=== PATIENT | female | born 1955 | race Hispanic/Latino ===

== ENCOUNTER 2018-12-09 06:58 | Day surgery (SDC) | payer BC ==
[~2018-12-09] VITALS: Ht 154.9 cm; Wt 69.9 kg
[~2018-12-09 06:58] MED LIST: ACET-66 PO; ASPI-555 PO; ATOR20TA65 PO; LOSA1TAB37 PO; PANT40TA25 PO; POTA20PA32 PO; SODIUM CHLORIDE 0.9% 1000ML 1,000 ML IV ONE
[2018-12-09] MEDS ORDERED: PROPOFOL 10 MG/ML 20ML VIAL IV ONE (09:22)
[2018-12-09 09:43] VITALS: BP 85/40
[2018-12-09 09:48] VITALS: BP 100/49
[2018-12-09 09:53] VITALS: BP 110/49
[2018-12-09 09:58] VITALS: BP 112/56
== END 2018-12-09 10:10 | disposition home or self-care (01) ==
LOC: ENDO 06:58
PROVIDERS: ATTEND Internal Medicine
DX: K63.5 Polyp of colon (principal); K29.50 Unspecified chronic gastritis without bleeding; K64.8 Other hemorrhoids; K57.30 Diverticulosis of large intestine without perforation or abscess without bleeding; K44.9 Diaphragmatic hernia without obstruction or gangrene; K21.0 Gastro-esophageal reflux disease with esophagitis; I10 Essential (primary) hypertension; E78.5 Hyperlipidemia, unspecified; Z85.72 Personal history of non-Hodgkin lymphomas; Z79.82 Long term (current) use of aspirin; Z79.899 Other long term (current) drug therapy; Z82.49 Family history of ischemic heart disease and other diseases of the circulatory system
CPT/HCPCS: 43239; 45380; A4606; J2704; J7030